=== PATIENT | female | born 1980 | race Two or more races ===

== ENCOUNTER 2021-03-21 12:49 | Emergency (ER) | payer OTHER ==
[~2021-03-21] VITALS: Ht 157.5 cm; Wt 54.4 kg
[2021-03-21 14:06] VITALS: BP 154/90
[2021-03-21] MEDS ORDERED: IBUP600T27 PO (14:10)
== END 2021-03-21 14:21 | disposition home or self-care (01) ==
LOC: ER 12:49
DX: S63.92XA Sprain of unspecified part of left wrist and hand, initial encounter (principal); F17.210 Nicotine dependence, cigarettes, uncomplicated; Z79.1 Long term (current) use of non-steroidal anti-inflammatories (NSAID); W18.39XA Other fall on same level, initial encounter; Y93.89 Activity, other specified; Y92.89 Other specified places as the place of occurrence of the external cause; Y99.8 Other external cause status
CPT/HCPCS: 73110